=== PATIENT | male | born 1965 | race Caucasian/White ===

== ENCOUNTER 2016-07-05 13:24 | Emergency (ER) | payer SELFPAY ==
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
[2016-07-05 14:48] VITALS: BP 142/84
[2016-07-05] MEDS ORDERED: KETOROLAC TROMETHAMINE 30 MG/ML VIAL IV ONE (14:48)
[2016-07-05] MEDS ORDERED: KETOROLAC TROMETHAMINE 30 MG/ML VIAL ONE (14:49)
--- OUTSIDE RECORDS SUMMARY | 2016-07-05 15:05 | XMS REPORT | Continuity of Care Document ---
:1965 Author Organization [facility] Address Unavailable [place] [id number] Care Team Providers Name Role Phone Christopher Saldana Primary Care Provider [phone] Source Comments This disclosure is being made pursuant to the [employer] program and maynot contain all information available regarding this patient.[employer] Active Allergies and Adverse Reactions Allergen Noted Date Severity Reactions Comments Penicillins 10/04/2013 Other (See Comments) Historic. Was told by mother he is allergic Sulfa Antibiotics 10/04/2013 Other (See Comments) When young doesn't remember reaction Current Medications Be aware that medications may not be up to date as of this document. Alwaysverify current medications with the patient. Prescription Sig. Disp. Refills Start Date End Date Status mometasone-formoterol Inhale 2 puffs 1 Inhaler 2 02/25/2016 Active (DULERA) 100-5 into the lungs 2 MCG/ACT AERO inhaler (two) times daily. HYDROcodone-acetamino Earliest Fill 90 tablet 0 06/27/2016 08/17/2018 Active phen (NORCO) 7.5-325 Date: 06/27/16. MG per tablet One three times daily (Must last 30 days) HYDROcodone-acetamino One three times 90 tablet 0 05/09/2016 08/27/2019 Active phen (NORCO) 7.5-325 daily (Must last MG per tablet 30 days) HYDROcodone-acetamino Earliest Fill 90 tablet 0 05/27/2016 02/14/2019 Active phen (NORCO) 7.5-325 Date: 05/27/16. MG per tablet One three times daily (Must last 30 days) diazepam (VALIUM) 10 One oral at 30 tablet 2 04/27/2016 Active MG tablet bedtime as needed Active Problems Problem Noted Date Spondylosis lumbar-mild 10/11/2014 Overview: X-ray 2012 Sleep disorder: Followup May 2016 10/05/2014 Chronic Pain Management: Follow Up July 2016 09/30/2014 Overview: September 2015-compliant screening performed, patient is compliant with treatment regimen. Screening colonoscopy: Due 201905/01/2014 Overview: -Performed April 2014 Polyps removed from recent colonoscopy were precancerous, adenomas with low-grade dysplasia. Rectal bleeding secondary to hemorrhoids. Repeat examination in 5 years. Colon polyps 05/01/2014 Overview: -colonoscopy April 2014, repeat 2019,Polyps removed from recent colonoscopy were precancerous, adenomas with low-grade dysplasia. Rectal bleeding secondary to hemorrhoids. Repeat examination in 5 years. Smoking 04/02/2014 Chronic obstructive asthma with exacerbation (HCC) 10/23/2012 Overview: Overview: CHANDANA LUU CNP Vaccine tdap: due 12/26/2011 Overview: Overview: MARION RODGERS Resolved Problems Problem Noted Date Resolved Date Mixed emotional features as adjustment reaction 01/18/2012 12/19/2015 Overview: Overview: DANIKA WOODS CNP Transient disorder of initiating or maintaining sleep 01/18/2012 07/20/2014 Overview: Overview: DANIKA WOODS CNP Backace 01/07/2011 10/05/2014 Overview: Depressive disorder 01/07/2011 12/19/2015 Overview: Overview: OTONIEL BLACKMON CNP H/O fracture of skull 10/11/2014 Overview: age of 4 H/O fracture of ankle 10/11/2014 Overview: right Most Recent Encounters Date Type Specialty Providers Description 04/27/2016 Office Visit Family Medicine Christopher Saldana MD Spondylosis lumbar- mild (Primary Dx) Immunizations Name Dates Previously Given Next Due Td, preservative free 12/26/2011 Social History Tobacco Use Types Packs/Day Years Used Date Current Every Day Smoker 0.75 35 Smokeless Tobacco: Current User Chew Tobacco Cessation:Ready to Quit: No; Counseling Given: Yes Comments:not ready to quit Alcohol Use Drinks/Week oz/Week Comments Yes 1-4 Cans of beer 0.6 - 2.4 Last Filed Vital Signs Vital Sign Reading Time Taken Blood Pressure 150/80 04/27/2016 12:17 PM CDT Pulse 64 04/27/2016 12:17 PM CDT Temperature 36.4 C (97.6 F) 04/27/2016 12:17 PM CDT Respiratory Rate 17 02/23/2016 2:59 PM [employer] Height 1.689 m (5' 6.5") 04/27/2016 12:17 PM CDT Weight 59.784 kg (131 lb 12.8 oz) 04/27/2016 12:17 PM CDT Body Mass Index 20.96 04/27/2016 12:17 PM CDT Oxygen Saturation 96% 06/12/2015 12:06 PM CDT Plan of Care Date Type Specialty Providers Description 07/27/2016 Appointment Family Medicine Christopher Saldana MD [address] [place] [phone] (Fax) Health Maintenance Due Date Last Done Comments Pneumococcal Medium Risk 1982 19-64 yo (1 of 1 - PPSV23) Tetanus/Pertussis (1 - Tdap) 12/27/2011 12/26/2011 Well Adult Visit 2013 Influenza Immunization (#1) 2015 Hepatitis C Screening 03/10/2017 Postponed from 1981 (Patient Declined) Colonoscopy 04/28/2024 04/28/2014, 04/28/2014, 04/28/2014 Results from Last 3 Months Not on file
[2016-07-05] MEDS ORDERED: DIPHTH,PERTUSS(ACELL),TET VAC 0.5 ML VIAL IM ONE ×2 (15:08→15:09)
== END 2016-07-05 15:23 | disposition home or self-care (01) ==
LOC: ER 13:24
DX: M54.2 Cervicalgia (principal); Z23 Encounter for immunization; V53.6XXA Passenger in pick-up truck or van injured in collision with car, pick-up truck or van in traffic accident, initial encounter; Y92.411 Interstate highway as the place of occurrence of the external cause